=== PATIENT | female | born 1985 | race Caucasian/White ===

== ENCOUNTER 2023-02-21 04:27 | Day surgery (SDC) | payer OTHER ==
[2023-02-17 12:48] VITALS: BMI 37.5
[2023-02-21] MEDS ORDERED: MIDAZOLAM HCL 2 MG/2 ML SINGLE DOSE VIAL ONE (13:33)
[2023-02-21] MEDS ORDERED: PROPOFOL 20 ML ONE (13:34)
[2023-02-21] MEDS ORDERED: ceFAZolin SODIUM 1 GM VIAL IVPB ONE (13:48)
[2023-02-21] MEDS ORDERED: oxyCODONE HCL 5 MG TABLET PO PRN (14:25)
[2023-02-21] MEDS ORDERED: ONDANSETRON 4 MG/2 ML VIAL IVPUSH PRN (14:25)
[2023-02-21] MEDS ORDERED: LACTATED RINGERS SOLUTION 1,000 ML IV SCH (14:30)
[2023-02-21] MEDS ORDERED: ONDANSETRON 4 MG/2 ML VIAL ONE (15:34)
[2023-02-21] MEDS ORDERED: oxyCODONE HCL 5 MG TABLET PO ONE (16:40)
[2023-02-21] MEDS ORDERED: oxyCODONE HCL 10 MG SUSTAINED ACTING TABLET ONE (16:43)
[2023-02-21] MEDS ORDERED: PROMETHAZINE HCL 25 MG/1 ML VIAL IVPB PRN (16:48)
[2023-02-21] MEDS ORDERED: PROMETHAZINE HCL 25 MG/1 ML VIAL ONE (16:56)
[2023-02-21 17:10] VITALS: RESP 20; TEMP 97.5
[2023-02-21 18:24] VITALS: BP 152/81; PULSE 69
== END 2023-02-21 18:32 | disposition home or self-care (01) ==
LOC: JASU-SURG 04:27
PROVIDERS: ATTEND Obstetrics & Gynecology
PROC: 0U5B8ZZ Destruction of Endometrium, Via Natural or Artificial Opening Endoscopic (ICD-10-PCS; principal; 2023-02-21 11:30)
DX: N92.0 Excessive and frequent menstruation with regular cycle (principal)
CPT/HCPCS: 81025; 82962; 88305-TC; 94760

== ENCOUNTER 2023-09-14 16:38 | Emergency (ER) | payer OTHER ==
[2023-09-14 16:42] VITALS: BP 128/89; PULSE 86; RESP 18; TEMP 98.3; BMI 36.6
[2023-09-14] MEDS ORDERED: ACETAMINOPHEN 500 MG TABLET (FP) ONE (19:26)
[2023-09-14] MEDS: ACETAMINOPHEN 500 MG TABLET (FP) PO ONE (19:28)
== END 2023-09-14 19:50 | disposition short-term general hospital (02) ==
LOC: JERFT 16:38
DX: H60.91 Unspecified otitis externa, right ear (principal); H92.01 Otalgia, right ear; H91.91 Unspecified hearing loss, right ear
CPT/HCPCS: 99285-25